=== PATIENT | female | born 1975 | race Caucasian/White ===

== ENCOUNTER → 2020-10-20 | Outpatient (CLI) | payer BC | LOC: EXRD 15:32 | DX: E03.9 Hypothyroidism, unspecified (principal) | CPT/HCPCS: 76536 ==

== ENCOUNTER → 2020-12-18 | Outpatient (CLI) | payer BC, OTHER | LOC: RAD 08:56 | DX: M25.562 Pain in left knee (principal) | CPT/HCPCS: 73562 ==